=== PATIENT | female | born 1955 | race Caucasian/White ===

== ENCOUNTER → 2022-07-03 | Outpatient (CLI) | payer MEDICARE ==
--- NOTE | 2022-07-03 17:03 | BD ---
EXAMINATION TYPE: Axial Bone Density DATE OF EXAM: 07/03/2022 CLINICAL HISTORY: 66 years old Female. ICD-10 CODE: Z13.820 SCREENING FOR OSTEOPOROSIS Height: 5 ft 5 3/4 in Weight: 182 FRAX RISK QUESTIONS: Alcohol (3 or more units per day): no Family History (Parent hip fracture): no Glucocorticoids (More than 3mos): no (Ex: prednisone, prednisolone, methylprednisolone, dexamethasone, and hydrocortisone). History of Fracture in Adulthood: no Secondary Osteoporosis: 1. Type 1 Diabetes: no 2. Hyperthyroidism: thyroid cancer removed 3. Menopause before 45: yes 4. Malnutrition: no 5. Chronic liver disease: no Rheumatoid Arthritis: no Current Tobacco Use: no RISK FACTORS HISTORY OF: Surgery to Spine/Hip(right/left)/Wrist (right/left): no Family History of Osteoporosis: yes Active: yes Diet low in dairy products/other sources of calcium: no Postmenopausal woman: yes Take estrogen and/or progesterone medications: yes How lon plus years Lost more than 2 inches in height since high school: no Frequent falls: no Poor Health: good Hyperparathyroidism: no Adrenal Insufficiency: no MEDICATIONS: Thyroid Medications: yes Which medication: levothyroxine, How Long: since age 11 Additional Medications: levothyroxine ,hrt, calcium, Additional History: EXAM MEASUREMENTS: Bone mineral densitometry was performed using the Familiar System. Bone mineral density as measured about the Lumbar spine is: ----- L1-L4(G/cm2): 1.509 T Score Values are as follows: ----- L1: 2.7 ----- L2: 2.6 ----- L3: 2.9 ----- L4: 2.6 ----- L1-L4: 2.7 Z Score Values are as follows: ----- L1: 3.8 ----- L2: 3.6 ----- L3: 4.0 ----- L4: 3.7 ----- L1-L4: 3.8 baseline Bone mineral density about the R hip (g/cm2): 1.181 Bone mineral density about the L hip (g/cm2): 1.230 T Score values are as follows: -----R Neck: 1.0 -----L Neck: 1.4 -----R Total: 2.0 -----L Total: 1.7 Z Score values are as follows: -----R Neck: 2.3 -----L Neck: 2.6 -----R Total: 3.0 -----L Total: 2.7 baseline FRAX%s: The graph provided illustrates a 5.7 % chance for a major osteoporotic fx and a 0.1 % chance for the hips probability for fx in 10 years time. IMPRESSION: Normal (Values between +1 and -1 indicate normal bone mass). Consider repeating this study in 5 year s or sooner if there is some new clinical indication. NOTE: T-SCORE=SD OF THE YOUNG ADULT MEAN.
--- NOTE | 2022-07-05 08:45 | MM ---
Reason for Exam: Screening (asymptomatic). Last mammogram was performed 1 year(s) and 3 month(s) ago. Patient History: Menarche at age 11. First Full-Term at age 24. Hysterectomy at age 43. Currently using Estrogen, starting at age 43. 1993, Bilateral Implants. Maternal grandmother had breast cancer. Risk Values: Bety 5 year model risk: 1.9%. NCI Lifetime model risk: 6.2%. Prior Study Comparison: 11/04/2007 Bilateral Screening Mammogram, [place]. 04/08/2021 Bilateral Screening Mammogram, [place]. Tissue Density: The breast tissue is heterogeneously dense. This may lower the sensitivity of mammography. Findings: Analyzed By CAD. There is no suspicious group of microcalcifications or new suspicious mass in either breast. Benign calcifications within the left breast. Bilateral saline implants redemonstrated. Overall Assessment: Benign, BI-RAD 2 Management: Screening Mammogram of both breasts in 1 year. A clinical breast exam by your physician is recommended on an annual basis and results should be correlated with mammographic findings. Electronically signed and approved by: Jose Brandon D.O.
== END | disposition home or self-care (01) ==
LOC: RADMAMWWP 14:32
PROVIDERS: ATTEND Internal Medicine
DX: Z12.31 Encounter for screening mammogram for malignant neoplasm of breast (principal); Z13.820 Encounter for screening for osteoporosis; Z78.0 Asymptomatic menopausal state; Z80.3 Family history of malignant neoplasm of breast
CPT/HCPCS: 77063; 77067; 77080

== ENCOUNTER → 2022-11-23 | Outpatient (CLI) | payer MEDICARE ==
--- NOTE | 2022-11-23 15:30 | US ---
EXAMINATION TYPE: US kidneys/renal and bladder DATE OF EXAM: 11/23/2022 COMPARISON: NONE CLINICAL INDICATION: Female, 67 years old with history of N18.30 CHRONIC KIDNEY DISEASE, STAGE 3 UNSP ECIFIED; CKD Stage 3. EXAM MEASUREMENTS: Right Kidney: 8.6 x 5.1 x 4.0 cm Left Kidney: 9.7 x 3.8 x 4.9 cm Hardware Engineer notes: Limited due to gas and body habitus. Right Kidney: Appears small in size. Mild pelviectasis. No calyceal dilatation to suggest lei hydr onephrosis. Left Kidney: No hydronephrosis or masses seen Bladder: No gross abnormality. Bilateral Jets seen: Yes IMPRESSION: No evident hydronephrosis.
== END | disposition home or self-care (01) ==
LOC: RADUSWWP 07:31
PROVIDERS: ATTEND Internal Medicine
DX: N18.30 Chronic kidney disease, stage 3 unspecified (principal)
CPT/HCPCS: 76770